=== PATIENT | male | born 1975 | race Caucasian/White ===

== ENCOUNTER 2016-12-08 20:31 | Emergency (ER) | payer MEDICAID ==
[~2016-12-08] VITALS: Ht 170.2 cm; Wt 110.9 kg
[~2016-12-08 20:31] MED LIST: DICL75 PO; HYDR-3533 PO; HYDROCODONE PO; NAPR-571 PO; ROBA750T3 PO; SOMA250T PO; TRAM50 PO
[2016-12-08 20:34] VITALS: BP 160/81; PULSE 101; RESP 16; TEMP 99; O2SAT 98
--- NOTE | 2016-12-08 21:26 | PD ---
HPI Chief Complaint: Injury Time Seen by Provider: 21:03 Travel History International Travel<30 days: No Contact w/Intl Traveler<30days: No Traveled to known affect area: No History of Present Illness HPI 41-year-old male presents to the emergency room for evaluation of right shoulder pain for the past several hours. Patient states he tripped on something in his garage and fell forward. His right arm was thrown up in the area behind him. He heard a pop and was unable to lower it without significant pain. States he "put it back in place." Since then he has had extreme pain in the anterior humeral head. Pain is worsened with any range of motion. It radiates down his right upper extremity. States he has some paresthesias in the right upper extremity. He took ibuprofen without any relief. [facility] Past Medical History Diminished Hearing: Yes (TUBES PERFORATED EAR DRUM) Kidney Stones: Yes (OCTOBER 2013) Past Surgical History Ear Surgery: Yes Tympanostomy Tube: Yes Social History Alcohol Use: Yes Tobacco Use: Yes (STOPPED 03/03) Substance Use: Yes Allergies-Medications (Allergen,Severity, Reaction): Coded Allergies: No Known Allergies (Unverified , 12/08/16) Reported Meds & Prescriptions Reported Meds & Active Scripts Active No Active Prescriptions or Reported Medications Review of Systems Except as stated in HPI: all other systems reviewed are Neg Physical Exam Narrative GENERAL: Well-nourished, well-developed male in no acute distress. Afebrile. Ambulatory. SKIN: Focused skin assessment warm/dry. No erythema or ecchymosis. HEAD: Normocephalic. EYES: No scleral icterus. No injection or drainage. NECK: Supple, trachea midline. No JVD or lymphadenopathy. CARDIOVASCULAR: Regular rate and rhythm without murmurs, gallops, or rubs. RESPIRATORY: Breath sounds equal bilaterally. No accessory muscle use. MUSCULOSKELETAL: No cyanosis. No obvious edema. 2+ radial pulse. Radial, ulnar, and median nerves intact. Limited range of motion of the shoulder secondary to pain. There is extreme tenderness to palpation of the anterior humeral head. Data Data Last Documented VS Vital Signs Date Time Temp Pulse Resp B/P (MAP) Pulse Ox O2 Delivery O2 Flow Rate FiO2 12/08/16 20:34 99.0 101 16 160/81 (107) 98 Orders Orders Shoulder, Complete (>2vws) (12/08/16 ) [facility] Medical Decision Making Medical Screen Exam Complete: Yes Emergency Medical Condition: Yes Medical Record Reviewed: Yes Differential Diagnosis Shoulder dislocation, sprain, strain, fracture unlikely Narrative Course 41-year-old male presents to the emergency room for evaluation of right shoulder pain and swelling after injuring it earlier today. Patient fell forward in his right arm went behind him. He heard a pop and has had pain since then. Pain is worsened with any range of motion. Physical exam is remarkable for extreme tenderness to palpation of the anterior humeral head and the range of motion because of pain. No obvious edema, erythema, or ecchymosis. Right upper extremity is neurovascularly intact with 2+ radial pulse. Radial, ulnar, median nerves intact. X-ray shows no acute bony abdomen really. This shoulder sprain. Patient discharged with prescription for ibuprofen and told to follow up with a primary care physician for outpatient MRI or return for worsening symptoms. He understands and agrees to plan. Diagnosis Primary Impression: Sprain of right shoulder Qualified Codes: S43.401A - Unspecified sprain of right shoulder joint, initial encounter Referrals: Primary Care Physician Additional Instructions: Rest and drink plenty of fluids. Maintain range of motion to prevent frozen shoulder. Take ibuprofen with food as directed, as needed for pain. Apply ice to the affected area for 20 minutes at a time, as needed for pain and swelling. Follow-up with a primary care physician for MRI if symptoms persist. Return to the emergency room for worsening symptoms. Med/Other Pt SpecificInfo: Prescription(s) given Scripts No Active Prescriptions or Reported Meds Disposition: 01 DISCHARGE HOME Condition: Stable Shira Mejia Dec 08, 2016 21:26
--- NOTE | 2016-12-08 21:55 | RADRPT ---
EXAM DATE/TIME: 12/08/2016 21:32 [facility] COMPARISON: No previous studies available for comparison. INDICATIONS : Right shoulder pain post fall. MEDICAL HISTORY : None. SURGICAL HISTORY : None. ENCOUNTER: Initial ACUITY: 1 day PAIN SCORE: 5/10 LOCATION: Right shoulder. FINDINGS: 4 views of the right shoulder demonstrate no fracture or dislocation. The acromioclavicular joint is intact. The visualized soft tissues demonstrate no abnormality. Visualized portions of the right lung are clear. No displaced rib fracture is seen. CONCLUSION: No acute abnormality is identified. Rancho Adame MD on December 08, 2016 at 21:53 Board Certified Radiologist. This report was verified electronically.
[2016-12-08] MEDS ORDERED: IBUP-232 PO (22:05)
== END 2016-12-08 22:23 | disposition home or self-care (01) ==
LOC: PHEFT 20:31
DX: S43.401A Unspecified sprain of right shoulder joint, initial encounter (principal); W01.0XXA Fall on same level from slipping, tripping and stumbling without subsequent striking against object, initial encounter; Y92.008 Other place in unspecified non-institutional (private) residence as the place of occurrence of the external cause
CPT/HCPCS: 73030; 99283

== ENCOUNTER 2017-03-18 14:45 | Emergency (ER) | payer OTHER ==
[~2017-03-18] VITALS: Ht 170.2 cm; Wt 110.0 kg
[~2017-03-18 14:45] MED LIST changes: -DICL75 PO; -HYDR-3533 PO; -HYDROCODONE PO; +IBUP-232 PO; -NAPR-571 PO; -ROBA750T3 PO; -SOMA250T PO; -TRAM50 PO
[2017-03-18 14:57] VITALS: BP 131/82; PULSE 86; RESP 16; TEMP 98.7; O2SAT 95
--- NOTE | 2017-03-18 15:26 | PD ---
HPI Chief Complaint: Laceration/Skin Injury Time Seen by Provider: 15:12 Travel History International Travel<30 days: No Contact w/Intl Traveler<30days: No Traveled to known affect area: No History of Present Illness HPI 41-year-old male with laceration to his scalp after he cut the area on the vazquez of a truck. He reports he was and over working on an engine and stood up cutting his head on the edge of the vazquez. There was no loss of consciousness. He denies headache, neck pain, visual changes, nausea vomiting. Tetanus immunization is up-to-date. Pain is minimal at the site of the laceration. No aggravating or alleviating factors. PFSH Past Medical History Medical History: Denies Significant Hx Hx Anticoagulant Therapy: No Diabetes: No Diminished Hearing: Yes (TUBES PERFORATED EAR DRUM) Kidney Stones: Yes (OCTOBER 2013) Influenza Vaccination: No Past Surgical History Ear Surgery: Yes Tympanostomy Tube: Yes Social History Alcohol Use: Yes Tobacco Use: Yes (ONE PPD) Substance Use: No Allergies-Medications (Allergen,Severity, Reaction): Coded Allergies: No Known Allergies (Unverified Adverse Reaction, Unknown, 03/18/17) Reported Meds & Prescriptions Reported Meds & Active Scripts Active No Active Prescriptions or Reported Medications Review of Systems Except as stated in HPI: all other systems reviewed are Neg Physical Exam Narrative GENERAL: Alert, well-appearing male no acute distress SKIN: Warm and dry. HEAD: Normocephalic. 1.5 cm laceration scalp no active bleeding. EYES: No scleral icterus. No injection or drainage. EOMs intact. NECK: Supple, trachea midline. No cervical midline tenderness. MUSCULOSKELETAL: No cyanosis, or edema. NEUROLOGICAL: Awake and alert. Cranial nerves II through XII intact. Motor and sensory grossly within normal limits. Five out of 5 muscle strength in all muscle groups. Normal speech. Data Data Last Documented VS Vital Signs Date Time Temp Pulse Resp B/P (MAP) Pulse Ox O2 Delivery O2 Flow Rate FiO2 03/18/17 14:57 98.7 86 16 131/82 (98) 95 Orders Orders Ed Discharge Order (03/18/17 15:26) MDM Medical Decision Making Medical Screen Exam Complete: Yes Emergency Medical Condition: Yes Differential Diagnosis Scalp laceration, scalp contusion, skull fracture Narrative Course 41 year old male with a 1.5 cm laceration to his scalp caused by the vazquez of a truck. No loss of consciousness. No headache. Patient has a normal neurologic exam. Laceration repair performed. Head injury precautions discussed. Procedures Procedure Narrative LACERATION LOCATION: Scalp LENGTH: 1.5 cm NUMBER OF STITCHES/BRINDA: One staple REPAIR: The area of the laceration was prepped with Betadine and sterilely draped. The wound was copiously irrigated and explored without evidence of foreign body, tendon injury or neurovascular injury. The wound was closed using [staple]. This was a [single] layer repair. A sterile dressing was applied. The patient was advised to keep the dressing clean and dry. Patient tolerated the procedure well. Diagnosis Primary Impression: Scalp laceration Qualified Codes: S01.01XA - Laceration without foreign body of scalp, initial encounter Referrals: [facility] Additional Instructions: Do not submerge the laceration in water. He may shower. Staple knee surgery removed in 7-10 days. Return if he developed new or worsening symptoms. Scripts No Active Prescriptions or Reported Meds Disposition: 01 DISCHARGE HOME Condition: Stable Cristel Ness Mar 18, 2017 15:26
== END 2017-03-18 15:35 | disposition home or self-care (01) ==
LOC: PHEFT 14:45
DX: S01.01XA Laceration without foreign body of scalp, initial encounter (principal); W22.8XXA Striking against or struck by other objects, initial encounter; Y93.89 Activity, other specified; Y92.812 Truck as the place of occurrence of the external cause
CPT/HCPCS: 12001